=== PATIENT | female | born 1965 | race Caucasian/White ===

== ENCOUNTER 2018-07-05 15:11 | Day surgery (SDC) | payer BC ==
[~2018-07-05] VITALS: Ht 167.6 cm; Wt 72.8 kg
[2018-07-05] MEDS ORDERED: estroven PO (15:16)
[2018-07-05] MEDS ORDERED: IBUP200C25 PO (15:16)
[2018-07-05] MEDS ORDERED: LEXA5TAB13 PO (15:16)
[2018-07-05] MEDS ORDERED: ONDANSETRON 4MG/2ML VIAL (J2405) As Ordered ONE (15:52)
[2018-07-05 15:55] LABS: BASO # 0.1 10^3/uL (0.0-0.2); BASO % 0.4 % (0.0-1.0); EOS # 0.1 10^3/uL (0.0-0.50); EOS % 0.6 % (0.0-3.0); HEMATOCRIT 41.8 % (36.0-47.0); HEMOGLOBIN 13.7 g/dl (12.0-15.5); LYMPH # 1.1 10^3/uL (1.5-4.5); LYMPH % 7.4 % (24.0-44.0); MEAN CORPUSCULAR HEMOGLOBIN 29.8 pg (27.0-33.0); MEAN CORPUSCULAR HGB CONC 32.8 g/dl (32.0-36.5); MEAN CORPUSCULAR VOLUME 90.9 fl (80.0-96.0); MONO # 0.9 10^3/uL (0.0-0.8); MONO % 6.4 % (0.0-5.0); NEUTROPHILS # 12.1 10^3/uL (1.8-7.7); NEUTROPHILS % 84.8 % (36.0-66.0); PLATELET COUNT, AUTOMATED 302 10^3/uL (150-450); WHITE BLOOD COUNT 14.3 10^3/uL (4.0-10.0)
[2018-07-05] MEDS ORDERED: ONDANSETRON 4MG/2ML VIAL (J2405) IV ONE (16:00)
[2018-07-05 16:23] LABS: ALT/SGPT 21 U/L (12-78); BILIRUBIN,DIRECT 0.2 MG/DL (0.0-0.2); BILIRUBIN,TOTAL 0.7 MG/DL (0.2-1.0); BLOOD UREA NITROGEN 9 MG/DL (7-18); CALCIUM LEVEL 9.1 MG/DL (8.5-10.1); CARBON DIOXIDE LEVEL 29 MEQ/L (21-32); CHLORIDE LEVEL 102 MEQ/L (98-107); GLOMERULAR FILTRATION RATE > 60.0 (>51); GLUCOSE, FASTING 108 MG/DL (70-100); LIPASE 104 U/L (73-393); POTASSIUM SERUM 4.1 MEQ/L (3.5-5.1); SODIUM LEVEL 138 MEQ/L (136-145)
[2018-07-05] MEDS ORDERED: NS 1,000 ML IV ONE (16:45)
[2018-07-05] MEDS ORDERED: MORPHINE 4 MG/ML 1ML VIAL/SYRINGE (J2270) IV ONE (16:45)
[2018-07-05] MEDS ORDERED: ISOVUE-370 76% 100ML VIAL (Q9967) As Ordered ONE (16:52)
--- NOTE | 2018-07-05 17:20 | REP ---
Clinical: Acute right lower quadrant pain. Technique: Axial contrast enhanced images from the lung bases to the pubic symphysis using 100 ml Isovue 370 intravenous contrast material with coronal and sagittal re-formations. Findings: The appendix is dilated to 8 mm and demonstrates periappendiceal stranding consistent with acute appendicitis (images [id number]). Cecum and terminal ileum appear relatively normal. The remainder of the small and large bowel is without obstruction or acute inflammatory process could sigmoid diverticula noted without acute diverticulitis. Small amount of free fluid extends into the pelvis. No free air or drainable collection/abscess. Liver, spleen, pancreas, gallbladder, bilateral adrenal glands and kidneys are normal. Pelvis demonstrates normal bladder and age-appropriate uterus/adnexa. No retroperitoneal adenopathy. Abdominal aorta and vasculature without aneurysm or dissection. Musculoskeletal structures demonstrate age-related degenerative changes. Lung bases demonstrate minimal linear fibro atelectatic changes at the left base. Small hiatal hernia noted. Impression: Acute appendicitis with periappendiceal stranding. Small amount of free fluid in the pelvis. No evidence for obstruction, perforation, or drainable collection/abscess. Electronically Signed by Cristobal Barber MD 07/05/2018 05:13 P
[2018-07-05] MEDS ORDERED: CLINDAMYCIN 900 MG in APPROPRIATE DILUENT 1 EA IV ONE (17:30)
[2018-07-05] MEDS ORDERED: HYDROMORPHONE HCL 0.5 MG/ 0.5 ML SYRINGE (J1170 PER 1) IV PRN (17:30)
[2018-07-05] MEDS ORDERED: IBUP200T45 PO (17:39)
[2018-07-05] MEDS ORDERED: ALIG4CAP PO (17:39)
[2018-07-05] MEDS ORDERED: ESTRTAB10 PO (17:39)
[2018-07-05] MEDS ORDERED: VITA200038 PO (17:39)
[2018-07-05 20:45] VITALS: BP 131/63
[2018-07-05] MEDS ORDERED: ONDANSETRON 4MG/2ML VIAL (J2405) IV PRN (21:30)
[2018-07-05] MEDS: NS 1,000 ML IV SCH (22:21)
[2018-07-05] MEDS: MORPHINE 4 MG/ML 1ML VIAL/SYRINGE (J2270) IV PRN (22:21)
[2018-07-06] VITALS (12 sets, daily range): BP systolic 90–109; BP diastolic 44–58
[2018-07-06] MEDS: MORPHINE 4 MG/ML 1ML VIAL/SYRINGE (J2270) IV PRN ×2 (03:02→06:15)
[2018-07-06] MEDS: NS 1,000 ML IV SCH ×3 (06:17→21:29)
[2018-07-06] MEDS ORDERED: BUPIVACAINE/EPIN 0.25% 30 ML VIAL As Ordered ONE (07:41)
[2018-07-06] MEDS ORDERED: ROCURONIUM BROMIDE 50 MG/5 ML VIAL As Ordered ONE (07:56)
[2018-07-06] MEDS ORDERED: PROPOFOL 200 MG/20 ML VIAL As Ordered ONE ×2 (07:56→08:35)
[2018-07-06] MEDS ORDERED: LIDOCAINE 2% INJ 100 MG/5 ML SDV (FOR ANES.) As Ordered ONE (07:56)
[2018-07-06] MEDS ORDERED: fentaNYL 250 MCG/5 ML INJECTION (J3010) As Ordered ONE (07:56)
[2018-07-06] MEDS ORDERED: MIDAZOLAM INJ 2 MG/2 ML VIAL (J2250) As Ordered ONE (07:57)
[2018-07-06] MEDS ORDERED: CLINDAMYCIN 600 MG/50 ML PREMIX BAG As Ordered ONE (08:04)
[2018-07-06] MEDS ORDERED: PHENYLephrine HCL 500 MCG/5 ML (100MCG/ML) SYRINGE (J2370) As Ordered ONE (08:35)
[2018-07-06] MEDS ORDERED: ePHEDrine SULFATE 25 MG/5 ML(5MG/ML) SYRINGE As Ordered ONE (08:35)
[2018-07-06] MEDS ORDERED: dexameTHASONE 4 MG/ML 1ML VIAL (J1100) As Ordered ONE (08:35)
[2018-07-06] MEDS ORDERED: NEOSTIGMINE 10 MG/10 ML VIAL (J2710) As Ordered ONE (08:49)
[2018-07-06] MEDS ORDERED: ONDANSETRON 4MG/2ML VIAL (J2405) As Ordered ONE (08:49)
[2018-07-06] MEDS ORDERED: METOCLOPRAMIDE INJ 10MG/2ML VIAL (J2765) As Ordered ONE (08:49)
[2018-07-06] MEDS ORDERED: KETOROLAC 60 MG/2 ML VIAL (J1885) As Ordered ONE (08:49)
[2018-07-06] MEDS ORDERED: GLYCOPYRROLATE INJ 0.2 MG/ML 2 ML VIAL As Ordered ONE (08:49)
[2018-07-06] MEDS ORDERED: NORCO, ANEXSIA 5/325MG TABLET (HYDROcodone/ACETAMINOPHEN) PO PRN (09:15)
[2018-07-06] MEDS ORDERED: ACETAMINOPHEN TAB 650MG DOSE (2X325MG) PO PRN (09:15)
--- NOTE | 2018-07-06 09:36 | HPE ---
DATE OF ADMISSION: 07/05/2018 CHIEF COMPLAINT: Abdominal pain. HISTORY OF PRESENT ILLNESS: The patient is a 53-year-old female who presents with right lower quadrant bowel pain that started early yesterday morning. She last ate around 11:00 a.m., had nausea and vomiting and this abdominal pain that appeared to be coming in waves. She was able to sit still and it would be okay but with any movement the pain got significantly worse. Finally in the evening yesterday she came to emergency room for evaluation and was found to have acute appendicitis with a white count of 14.3. Therefore I was called to evaluate. This morning her abdominal pain is still fairly significant she is doing well. Denying any denying any nausea or vomiting but the abdominal pain is starting to get progressively worse. No fevers. PAST MEDICAL HISTORY: Anxiety. PAST SURGICAL HISTORY: Bunionectomy and diagnostic laparoscopy for endometriosis. ALLERGIES: PENICILLIN. SOCIAL HISTORY: Denies drug, alcohol, or tobacco abuse. FAMILY HISTORY: Noncontributory. REVIEW OF SYSTEMS: Pertinent positive and negatives as stated in the history of present illness (HPI). PHYSICAL EXAMINATION: GENERAL: Alert and oriented times three. No acute stress. VITALS: Temperature 93, pulse 82, respirations 16, blood pressure 103/57, pulse ox 99% room air. HEENT: Pupils equally round react to light and accommodation. HEART: S1, S2 regular rate and rhythm. LUNGS: Clear to auscultation bilaterally. ABDOMEN: Soft. Tenderness to palpation right lower quadrant. Localized guarding, no rigidity. There is a reducible umbilical hernia. EXTREMITIES: No clubbing, cyanosis or edema. LABS: White count 40.3, hemoglobin 13.7, platelets 302, potassium 4.1, creatinine 0.6. IMAGING: CT abdomen and pelvis shows acute appendicitis with periappendiceal stranding. Small amount of free fluid and pelvis. There is no evidence of obstruction, perforation or drainable collection or abscess. The patient is a 53-year-old female with acute appendicitis. Recommendation to proceed with laparoscopic possible open appendectomy. Risks and benefits of the procedure are not limited to but including bleeding, infection, hernia formation, damage to surrounding structure need for further surgery discussed in detail with the patient. Informed consent was obtained and procedure was planned. Postoperatively, if she is doing well, we will plan on discharge home either this evening or first thing tomorrow morning.
--- NOTE | 2018-07-06 09:56 | RO ---
DATE OF PROCEDURE: 07/05/2018 PREOPERATIVE DIAGNOSIS: Acute appendicitis. POSTOPERATIVE DIAGNOSIS: Acute appendicitis. PROCEDURE: Laparoscopic appendectomy. SURGEON: Ziggy Alejandre DO ASSIST: None. ANESTHESIA: General. ESTIMATED BLOOD LOSS (EBL): 5. COMPLICATIONS: None. INDICATION FOR PROCEDURE: The patient is a 53-year-old female who presents with right lower quadrant abdominal pain and acute appendicitis. Recommendation was to proceed with laparoscopic possible open appendectomy. Risks and benefits of the procedure not limited to but including bleeding, infection, hernia formation, damage to surrounding structures, need for further surgery discussed in detail with the patient. Informed consent was obtained, and procedure was planned. DESCRIPTION OF PROCEDURE: The patient brought back to operating room #3. After sufficient sedation, the abdomen was sterilely prepped and draped. Next, time-out was done to confirm proper patient and proper procedure. Following that, a 5-mm incision was made in the left lower quadrant. Veress needle was inserted, and the abdomen was insufflated to 15 mmHg. Next, the Veress needle was removed. 5-mm Optiview port was used to gain access to the abdomen. Once the abdomen was entered, an 8-mm port was placed supraumbilically in the midline. Another 5-mm port suprapubically in the midline. The right lower quadrant was then examined. There was purulent fluid in the pelvis and along the right side. This was all aspirated out. The appendix was then identified extending down into the pelvis. Upon elevating it into the air, the base of the appendix appeared to be healthy, but the tip was dilated and was necrotic with a perforation. I was able to elevate it up in the air easily, dissected through the mesentery with the Enseal until the base was reached. Once the base was reached, two polydioxanone suture (PDS) Endoloops were placed. Once those were placed, the Enseal was used to amputate the appendix, bring it out in a 5-mm Endo Catch bag through the umbilical port site. A 7-Vietnamese round drain was then placed into the pelvis, brought out through the suprapubic port site. The fascia at the umbilical port site was then closed with a figure-of-8 0 Vicryl suture with a Abad-Roberta needle. Once this was all completed, the abdomen desufflated. Skin incisions were closed with 4-0 Vicryl subcuticular sutures. The drain was just held in place with Steri-Strips and a Tegaderm. The abdomen was cleaned and dried. 2 x 2s and tape were applied, thus ending the procedure.
[2018-07-06] MEDS: CIPROFLOXACIN 400 MG in APPROPRIATE DILUENT 1 EA IV SCH ×2 (10:00→22:02)
[2018-07-06] MEDS ORDERED: LR 1,000 ML IV SCH (10:15)
[2018-07-06] MEDS ORDERED: fentaNYL 100 MCG/2 ML INJECTION (J3010) IV PRN (10:15)
[2018-07-06] MEDS ORDERED: ONDANSETRON 4MG/2ML VIAL (J2405) IV PRN (10:15)
[2018-07-06] MEDS: SENOKOT S TAB PO SCH ×2 (12:13→20:03)
[2018-07-06] MEDS: ENOXAPARIN 40 MG/0.4 ML SYRINGE (J1650) SC SCH (12:14)
[2018-07-06] MEDS: metroNIDAZOLE 500 MG in APPROPRIATE DILUENT 1 EA IV SCH ×2 (12:14→17:32)
[2018-07-06] MEDS: KETOROLAC 30 MG/ML VIAL (J1885) IV PRN (20:04)
[2018-07-07] MEDS: metroNIDAZOLE 500 MG in APPROPRIATE DILUENT 1 EA IV SCH ×2 (00:18→05:21)
[2018-07-07 02:00] VITALS: BP 94/48
[2018-07-07] MEDS: NS 1,000 ML IV SCH (05:29)
[2018-07-07 06:00] VITALS: BP 105/51
[2018-07-07 06:40] LABS: HEMATOCRIT 31.9 % (36.0-47.0); MEAN CORPUSCULAR HEMOGLOBIN 29.5 pg (27.0-33.0); MEAN CORPUSCULAR VOLUME 92.2 fl (80.0-96.0); PLATELET COUNT, AUTOMATED 213 10^3/uL (150-450); RED BLOOD COUNT 3.46 10^6/uL (4.00-5.40); WHITE BLOOD COUNT 12.7 10^3/uL (4.0-10.0)
[2018-07-07 06:47] LABS: HEMOGLOBIN 10.2 g/dl (12.0-15.5)
[2018-07-07] MEDS: ENOXAPARIN 40 MG/0.4 ML SYRINGE (J1650) SC SCH (08:06)
[2018-07-07] MEDS: CIPROFLOXACIN 400 MG in APPROPRIATE DILUENT 1 EA IV SCH (08:07)
[2018-07-07] MEDS: SENOKOT S TAB PO SCH (08:08)
[2018-07-07] MEDS: KETOROLAC 30 MG/ML VIAL (J1885) IV PRN (08:09)
[2018-07-07] MEDS ORDERED: CIPR500T19 PO (08:32)
[2018-07-07] MEDS ORDERED: METR-201 PO (08:32)
[2018-07-07] MEDS ORDERED: NORCOTAB PO (08:32)
[2018-07-07 10:03] VITALS: BP 107/77
[2018-07-07] MEDS ORDERED: diphenhydrAMINE 25 MG CAP PO ONE (10:15)
--- NOTE | 2018-07-08 13:33 | DSES ---
DATE OF ADMISSION: 07/05/2018 DATE OF DISCHARGE: 07/07/2018 ADMISSION DIAGNOSIS: Acute appendicitis. DISCHARGE DIAGNOSIS: Acute appendicitis. HOSPITAL COURSE: Patient is a 53-year-old female, who presented with acute appendicitis. She was brought to operating room early yesterday morning for laparoscopic appendectomy. During the procedure, she was found have a perforated appendix. She has been afebrile but because of the of perforation I left a drain in place and kept her overnight to make sure she remained afebrile and that her white count improved this morning. This morning she is doing great, tolerating diet, ambulating and urinating without any difficulties. The white count is improved from 14 to 12. Pain is controlled. Plan is to discharge home today. The drain is still a slightly cloudy so I left it in place. I gave her instructions on how to take care of it and shower with it in place. She will go home today and followup with me in the office on Sunday, and I will plan to remove it in the office on Sunday. I sent her prescriptions home for pain meds, Cipro and Flagyl. She will pick those up on her way home today. All of her questions were answered and she will see me in the office Sunday.
== END 2018-07-07 12:10 | disposition home or self-care (01) ==
LOC: M ED 15:11 → M SDC 17:20 → M MS5PR 21:00 → M SDC 07-07 12:10
PROVIDERS: ATTEND Surgery
DX: K35.20 Acute appendicitis with generalized peritonitis, without abscess (principal); F41.9 Anxiety disorder, unspecified; Z79.899 Other long term (current) drug therapy; Z88.0 Allergy status to penicillin
CPT/HCPCS: 36415; 44970; 74177; 80048; 80076; 81001; 83690; 85025; 85027; 88304; 96365; 96366; 96375; 96376; 99284; J0744; J1100; J1170; J1650; J1885; J2250; J2270; J2370; J2405; J2710; J2765; J3010; Q9967